=== PATIENT | female | born 1970 | race Asian ===

== ENCOUNTER 2017-05-12 15:42 | Inpatient (IN) | payer MEDICAID ==
[~2017-05-12] VITALS: Ht 165.1 cm; Wt 49.9 kg
--- NOTE | 2017-05-12 16:00 | NUR ---
Nicolás Plata MANAGER TRACK evaluating pt in triage room.
[2017-05-12] MEDS ORDERED: NACL 0.9% 1,000 ML IV ONE (16:15)
[2017-05-12] MEDS ORDERED: MORPHINE 4 MG/ML INJ. SYRINGE IVP ONE (16:15)
[2017-05-12] MEDS ORDERED: ONDANSETRON HCL 4 MG/2 ML VIAL IVP ONE (16:15)
--- NOTE | 2017-05-12 16:15 | NUR ---
Called pt for triage, in lab
[2017-05-12 16:19] LABS: MEAN CORPUSCULAR HEMOGLOBIN 29 pg (27-31); MEAN CORPUSCULAR HGB CONC 33 % (32-36); MEAN CORPUSCULAR VOLUME 89 fL (79.0-98.0)
[2017-05-12 16:20] LABS: BILIRUBIN,URINE 1+ (NEGATIVE); BLOOD, URINE 3+ (NEGATIVE); CLARITY/URINE CLOUDY (CLEAR); COLOR,URINE YELLOW (YELLOW); GLUCOSE,URINE NEGATIVE (NEGATIVE); KETONES,URINE NEGATIVE (NEGATIVE); LEUKOCYTE ESTERASE ,URINE 2+ (NEGATIVE); NITRITE, URINE NEGATIVE (NEGATIVE); PROTEIN URINE 3+ (NEGATIVE)
[2017-05-12 16:23] LABS: BASOPHILS # (AUTO) 0.1 K/uL (0.0-0.2); BASOPHILS % (AUTO) 0.6 % (0.0-2.0); HEMATOCRIT 39.3 % (36-48); LYMPHOCYTES # (AUTO) 0.4 K/uL (1.0-5.5); LYMPHOCYTES % (AUTO) 2.7 % (20.5-51.5); MONOCYTES # (AUTO) 0.9 K/uL (0.0-1.0); PLATELET COUNT (AUTO) 200 K/uL (130-430); RED BLOOD CELL COUNT(AUTO) 4.44 MIL/uL (4.2-6.2); WHITE BLOOD COUNT (AUTO) 15.4 K/uL (4.8-10.8)
[2017-05-12 16:29] LABS: CREATININE 1.89 mg/dL (0.55-1.30); POTASSIUM 3.4 mmol/L (3.5-5.1)
[2017-05-12 16:34] LABS: ALBUMIN 3.1 g/dL (3.4-4.8); TOTAL BILIRUBIN 0.4 mg/dL (0.0-1.0); TOTAL PROTEIN, SERUM 8.8 g/dL (6.4-8.3)
--- NOTE | 2017-05-12 16:35 | NUR ---
Called pt for triage, in ultrasound
[2017-05-12 16:41] LABS: NEUTROPHILS % (AUTO) 90.7 % (40.0-70.0)
[2017-05-12 16:55] LABS: BACTERIA,URINE MODERATE /HPF (None Seen); RBC,URINE 20-50 /HPF (0-3)
[2017-05-12 16:56] LABS: COARSE GRANULAR CASTS,URINE 0-10 /LPF (None Seen); MUCUS,URINE None Seen /LPF (None Seen); URINE AMORPHOUS URATE 2+ /HPF (None Seen)
--- NOTE | 2017-05-12 17:12 | NUR ---
Ambulatory to bed 7, labs and ultrasound done
[2017-05-12 17:15] VITALS: BP_SYST 156
--- NOTE | 2017-05-12 17:19 | NUR ---
Phleb at bedside for blood cultures
--- NOTE | 2017-05-12 17:20 | NUR ---
Patient is A & O x 4. Patient's skin is warm, dry and intact. Patient complaints of vomiting for 5 days with upper right abdominal pain. Also complaining of headache pain 10/10. No other complaints/injuries per patient or as noted. Will continue to monitor.
[2017-05-12] MEDS ORDERED: ACETAMINOPHEN 500 MG TABLET PO ONE (17:45)
[2017-05-12] MEDS ORDERED: cefTRIAXone 2 GM VIAL ONE (18:05)
--- NOTE | 2017-05-12 18:40 | NUR ---
Patient reports pain 2/10 30minutes after administration of Morphine. No adverse reactions noted. Will continue to monitor.
[2017-05-12] MEDS ORDERED: INSU100V (18:50)
[2017-05-12] MEDS ORDERED: INSU100V11 SQ (18:50)
[2017-05-12] MEDS ORDERED: [UNRECOGNIZED DRUG - CODE] MC (18:51)
[2017-05-12] MEDS ORDERED: DOCU-144 PO (18:52)
--- NOTE | 2017-05-12 19:04 | NUR ---
Patient will be admitted to care of Dr. iSmental . Admitted to telemetry unit. Will go to room 109 A. Belongings list completed. Summary report printed. Report will be given at bedside.
--- NOTE | 2017-05-12 19:04 | NUR ---
ADMISSION NOTE Received patient from ER via gurney. Patient admitted with diagnosis of abdominal pain. Patient oriented to hospital routine, call light, toileting and safety-patient verbalized understanding.
[2017-05-12 19:05] VITALS: BP_SYST 138
[2017-05-12 19:27] VITALS: BP_SYST 138
[2017-05-12 20:03] VITALS: BP_SYST 138
--- NOTE | 2017-05-12 20:04 | NUR ---
OPENING NOTES PATIENT IS A/OX4. VITAL SIGNS ARE STABLE. NO SIGNS OF DISTRESS. BREATHING IS NON LABORED. PATIENT HAS NO COMPLAINTS OF PAIN AT THIS TIME. PATIENT STATED THAT PAIN IS 2/10 AND THAT IS COMFORTABLY FOR HER. IV IS PATENT. BOLUS OF NS IS RUNNING THAT WAS GIVEN IN THE ER. PATIENT INSTRUCTED TO CALL FOR ASSISTANCE. CALL LIGHT IS WITHIN REACH. SAFETY MEASURES ARE IN PLACE.WILL CONTINUE TO MONITOR.
--- NOTE | 2017-05-12 20:16 | NUR ---
CONSULT REASON ABD PAIN CALLED YES SPOKE WITH ADOLFO FOR DOCTOR ATIL
--- NOTE | 2017-05-12 21:06 | NUR ---
PAGED I PAGED DR. LIZ @ 2105 I SPOKE WITH ADOLFO SUNSHINE CALLED BACK TELLING ME THE WAS NOT HIS PATIENT I TOLD HIM I DID NOT PAGED YOU I PAGED DR. LIZ. I CALLED BACK @ 2109 I SPOKE WITH YOAV I TOLD HER THAT ADOLFO PAGED THE WRONG DRMihai THAT WE NEED DR. LIZ. SHE PAGED DR. LIZ NOW. DR. LIZ HAS NOT CALL YET.
--- NOTE | 2017-05-12 21:30 | NUR ---
PAGED DR. LIZ PAGED DR. LIZ FOR ORDERS.
--- NOTE | 2017-05-12 21:50 | NUR ---
COMMUNICATION WITH DR. LIZ CALLED INQUIRING ABOUT ADMISSION ORDERS. STATED THAT SHE WILL INPUT ORDERS.
--- NOTE | 2017-05-12 21:53 | NUR ---
PAGED I PAGED DR. LIZ AGAIN I SPOKE WITH EDMUNDO WYATT CONNECTED ME RIGHT AWAY THIS TIME DR. LIZ ANSWERED
[2017-05-12] MEDS ORDERED: MORPHINE 2 MG/ML INJ. SYRINGE IVP PRN (22:30)
[2017-05-12] MEDS ORDERED: ONDANSETRON HCL 4 MG/2 ML VIAL IVP PRN (22:30)
[2017-05-12] MEDS ORDERED: KCL 20 mEq in 100 mL (PREMIX) 100 ML IV ONE (23:39)
[2017-05-12] MEDS: PANTOPRAZOLE SODIUM 40 MG/VIAL (PROTONIX) IVP SCH (23:52)
[2017-05-12] MEDS: POTASSIUM CHLORIDE 10 MEQ in NACL 0.9% 1,000 ML IV SCH (23:53)
--- NOTE | 2017-05-13 00:15 | NUR ---
PATIENT CARE PATIENT WAS INFORMED OF DIET BEING CHANGED FROM NPO TO CLEAR LIQUID W/O RED. PATIENT WAS GIVEN CHICKEN BROTH. WILL HANG MEDICATION WHEN AVAILABLE.
[2017-05-13 00:23] VITALS: BP_SYST 139
[2017-05-13] MEDS ORDERED: metroNIDAZOLE 500 mg/NS 100 ML IV ONE ×2 (00:26→05:19)
[2017-05-13] MEDS ORDERED: LEVOFLOXACIN 250 MG/D5W 50 ML IV ONE (00:26)
[2017-05-13] MEDS: metroNIDAZOLE 500 mg/NS 100 ML IV SCH ×4 (00:37→21:19)
[2017-05-13] MEDS: LEVOFLOXACIN 250 MG/D5W 50 ML IV SCH ×2 (01:39→22:33)
--- NOTE | 2017-05-13 03:22 | NUR ---
NAUSEA/ VOMITING AND FEVER PATIENT VOMITED AND HAS A TEMPERATURE 100.4. PRN ANTINAUSEA AND TYLENOL WAS GIVEN. WILL CONTINUE TO MONITOR.
[2017-05-13] MEDS: ACETAMINOPHEN 325 MG TABLET PO PRN ×2 (03:31→16:50)
--- NOTE | 2017-05-13 03:51 | NUR ---
COMMUNICATION WITH DR. LIZ INFORMED DR. LIZ THAT DR. HARDEN, GI CONSULTATION, IS ON SUSPENSION. MD STATED TO CONSULT DR. HARDEN ANYWAY, BECAUSE DR. HARDEN PARTNERS WILL SEE THAT PATIENT AND NOT DR. HARDEN. CONSULTATION WAS CALLED IN.
--- NOTE | 2017-05-13 03:51 | NUR ---
CONSULT REASON -- ABD PAIN CALLED YES SPOKE WITH BERENICE OSMAN FOR DOCTOR HARDEN BUT DOCTOR HENRIQUEZ IS ELECTRIC MULE DRIVER . DOCTOR HARDEN IS ELECTRIC MULE DRIVER Addendum: 05/13/17 at 0352 by Beverly Herbert CNA DERECK IS ON SUSPENSION
[2017-05-13 04:04] VITALS: BP_SYST 150
--- NOTE | 2017-05-13 05:29 | NUR ---
PATIENT CARE PATIENT WAS ASSISTED TO THE RESTROOM AND BACK INTO BED. GAIT IS STEADY HOWEVER PATIENT COMPLAINED OF DIZZINESS. CALL LIGHT IS WITHIN REACH. BED ALARM IS ON. PATIENT WAS GIVEN NON SKID SLIPPERS. FALL RISK BAND WAS PLACED ON PATIENT. PATIENT INSTRUCTED TO CALL FOR ASSISTANCE. PATIENT VERBALIZED UNDERSTANDING. WILL CONTINUE TO MONITOR.
--- NOTE | 2017-05-13 05:33 | NUR ---
URINE FOR TEST WAS COLLECTED AND TAKING LAB.
[2017-05-13] MEDS: INSULIN ASPART 100 UNITS/ML, 10 ML VIAL (NovoLOG) SUBCUT PRN ×3 (06:35→22:14)
--- NOTE | 2017-05-13 06:51 | NUR ---
CLOSING NOTES PATIENT IS IN BED RESTING. NO COMPLAINTS OF PAIN OR NAUSEA. NO SIGNS OF DISTRESS. IV IS PATIENT. BREATHING IS NON LABORED. CALL LIGHT IS WITHIN REACH. BED ALARM IS ON. WILL ENDORSE ALL CARE TO THE MORNING NURSE.
[2017-05-13 07:25] LABS: HEMATOCRIT 32.9 % (36-48); HEMOGLOBIN 11.2 g/dL (12.0-16.0); MEAN CORPUSCULAR HEMOGLOBIN 30 pg (27-31); MEAN CORPUSCULAR HGB CONC 34 % (32-36); MEAN CORPUSCULAR VOLUME 89 fL (79.0-98.0); PLATELET COUNT (AUTO) 174 K/uL (130-430); RED BLOOD CELL COUNT(AUTO) 3.69 MIL/uL (4.2-6.2); RED CELL DISTRIBUTION WIDTH 12.8 % (9.0-15.0); WHITE BLOOD COUNT (AUTO) 14.2 K/uL (4.8-10.8)
--- NOTE | 2017-05-13 08:00 | NUR ---
OPENING NOTE PATIENT IS AWAKE ALERT AND ORIENTED. DENIES ANY PAIN AT THIS TIME. DENIES NAUSEA, REPORTS HUNGER AND WANTING TO GO HOME. AFEBRILE AND NO SIGNS OF DISTRESS.
[2017-05-13 08:10] LABS: ALBUMIN 2.5 g/dL (3.4-4.8); BILIRUBIN,DIRECT 0.2 mg/dL (0.0-0.3); CREATININE 1.86 mg/dL (0.55-1.30); POTASSIUM 3.4 mmol/L (3.5-5.1); THYROID STIMULATING HORMONE 0.63 uIu/mL (0.34-4.82); TOTAL BILIRUBIN 0.3 mg/dL (0.0-1.0); TOTAL PROTEIN, SERUM 7.1 g/dL (6.4-8.3)
[2017-05-13 08:27] VITALS: BP_SYST 115
[2017-05-13] MEDS: PANTOPRAZOLE SODIUM 40 MG/VIAL (PROTONIX) IVP SCH (09:10)
[2017-05-13] MEDS: POTASSIUM CHLORIDE 10 MEQ in NACL 0.9% 1,000 ML IV SCH ×2 (10:03→20:06)
--- NOTE | 2017-05-13 10:10 | NUR ---
PATIENT INFORMED OF HIDA PROCEDURE, INFORMED SHE IS NPO AND SHE WILL NOT RECEIVE PAIN MEDICATION UNTIL AFTER THE TEST HAS BEEN PERFORMED. EXPLAINED BASICS OF HIDA SCAN AND GALLBLADDER FUNCTION.
[2017-05-13 12:16] VITALS: BP_SYST 134
[2017-05-13] MEDS ORDERED: POTASSIUM CHLORIDE 20 MEQ in NS 250 ML IV ONE (12:30)
[2017-05-13 12:51] LABS: ATYPICAL LYMPHOCYTES % 1 % (0-0); BAND % (MANUAL) 32 % (0-6); BASOPHILS % (MANUAL) 0 % (0-2); EOSINOPHILS % (MANUAL) 1 % (0-7); LYMPHOCYTES % (MANUAL) 5 % (20-46); METAMYELOCYTES % 1 % (0-0); MONOCYTES % (MANUAL) 6 % (0-11)
[2017-05-13 12:52] LABS: MYELOCYTES % 1 % (0-0)
--- NOTE | 2017-05-13 13:09 | NUR ---
PATIENT TAKEN TO NUCLEAR MEDICINE VIA WHEELCHAIR.
--- NOTE | 2017-05-13 14:36 | NUR ---
PATIENT RETURNED FROM NUCLEAR MEDICINE
[2017-05-13 16:00] VITALS: BP_SYST 141
[2017-05-13 19:50] VITALS: BP_SYST 128
--- NOTE | 2017-05-13 19:50 | NUR ---
INITIAL NOTE Patient resting on the bed. No acute distress. Respiration even and unlabored. AO x 4. Denied of pain. Skin warm and dry to touch. IV intact to left wrist, no redness, no swelling, no drainage. On KCl 10mEq in NS at 100ml/hr, infusing well. Discussed the safety issue, use call light when need help, and plan of care, verbally understanding. Safety measure maintained. Bed in low position, side rails up. Call light within reached. Will continue to monitor.
--- NOTE | 2017-05-13 21:23 | NUR ---
ROUND Patient resting on the bed and watching TV. No acute distress. Respiration even and unlabored. Safety measure maintained. Bed in low position, side rails up. Call light within reached. Continue to monitor.
--- NOTE | 2017-05-13 21:53 | NUR ---
ROUTINE CONSULT FOR DR TAN SPOKE WITH MARY CALLED FOR ABDOMINAL PAIN ORIGINAL CONSULT FOR DR HARDEN BUT DR IS ON SUSPENSION
--- NOTE | 2017-05-13 22:17 | NUR ---
VOMITED Patient with episode of vomited x1. Offered Zofran but patient refused and hot tea provided per patient requested. HL=150, NovoLog insulin 4unit given as ordered. Call light within reached. Bed in low position, side rails up. Continue to monitor.
--- NOTE | 2017-05-13 23:50 | NUR ---
ROUND Patient resting on the bed comfortable. Respiration even and unlabored. No acute distress. Continue on KCl 10mEq in NS at 100ml/hr, infusing well. Safety measure maintained. Bed in low position, side rails up. Call light within reached. Continue to monitor.
[2017-05-14] VITALS (7 sets, daily range): BP systolic 129–157
--- NOTE | 2017-05-14 01:55 | NUR ---
ROUND Patient resting on the bed comfortable. No acute distress. Continue on KCl 10mEq in NS at 100ml/hr, infusing well. Safety measure maintained. Bed in low position, side rails up. Call light within reached. Continue to monitor.
--- NOTE | 2017-05-14 03:33 | NUR ---
ROUND Patient resting on the bed with eyes closed. Respiration even and unlabored. No acute distress. IV intact, continue on KCl 10mEq in NS at 100ml/hr, infusing well. Safety measure maintained. Call light within reached. Bed in low position, side rails up. Continue to monitor.
--- NOTE | 2017-05-14 05:12 | NUR ---
ASSISTED AMBULATION TO BATHROOM No acute distress. Still with episode of vomiting, Zofran offered but patient still refused. Hot tea provided and patient stated "I am okay." Safety measure maintained. Call light within reached. Continue to monitor.
[2017-05-14] MEDS: metroNIDAZOLE 500 mg/NS 100 ML IV SCH ×2 (05:49→14:48)
--- NOTE | 2017-05-14 06:50 | NUR ---
CLOSING NOTE Patient resting on the bed. No acute distress. Respiration even and unlabored. Skin warm and dry to touch. IV intact to left wrist, no redness, no swelling, no drainage. On KCl 10mEq in NS at 100ml/hr, infusing well. QV=[id number] this morning, no coverage. All needs met. Hourly rounding during shift. Safety measure maintained. Bed in low position, side rails up. Call light within reached. Will endorse to morning shift nurse.
[2017-05-14 07:16] LABS: BASOPHILS % (AUTO) 0.3 % (0.0-2.0); EOSINOPHILS # (AUTO) 0.1 K/uL (0.0-0.4); EOSINOPHILS % (AUTO) 0.7 % (0.0-4.0); HEMATOCRIT 31.1 % (36-48); HEMOGLOBIN 10.1 g/dL (12.0-16.0); LYMPHOCYTES # (AUTO) 0.8 K/uL (1.0-5.5); LYMPHOCYTES % (AUTO) 5.8 % (20.5-51.5); MEAN CORPUSCULAR HEMOGLOBIN 29 pg (27-31); MEAN CORPUSCULAR HGB CONC 33 % (32-36); MEAN CORPUSCULAR VOLUME 90 fL (79.0-98.0); MONOCYTES % (AUTO) 6.9 % (1.7-9.3); NEUTROPHILS # (AUTO) 12.2 K/uL (1.8-7.7); NEUTROPHILS % (AUTO) 86.3 % (40.0-70.0); PLATELET COUNT (AUTO) 203 K/uL (130-430); RED BLOOD CELL COUNT(AUTO) 3.47 MIL/uL (4.2-6.2); RED CELL DISTRIBUTION WIDTH 12.9 % (9.0-15.0); WHITE BLOOD COUNT (AUTO) 14.1 K/uL (4.8-10.8)
[2017-05-14 07:25] LABS: CALCIUM 7.9 mg/dL (8.4-11.0); CREATININE 1.41 mg/dL (0.55-1.30); POTASSIUM 4.4 mmol/L (3.5-5.1)
--- NOTE | 2017-05-14 08:00 | NUR ---
OPENING NOTES PATIENT IN BED, PT IS AWAKE ALERT AND ORIENTED. DENIES ANY PAIN AT THIS TIME. DENIES NAUSEA, REPORTS HUNGER TOLD HER THAT SHE IS IN CLEAR LIQUID DIET BUT REFUSE TO EAT IT. AFEBRILE AND NO SIGNS OF DISTRESS. IV FLUIDS RUNNING WELL ON L FA #20 IV. SITE IS CLEAR AND INTACT. NO INFLAMMATION. CALL LIGHT IN REACH, BED IN LOW POSITION. WILL CONT TO MONITOR.
[2017-05-14] MEDS ORDERED: DIATR MEGLU/DIATRIZ SOD 30 ML SOLUTION PO ONE (08:20)
[2017-05-14] MEDS: PANTOPRAZOLE SODIUM 40 MG/VIAL (PROTONIX) IVP SCH (08:44)
[2017-05-14] MEDS: POTASSIUM CHLORIDE 10 MEQ in NACL 0.9% 1,000 ML IV SCH (08:46)
--- NOTE | 2017-05-14 10:00 | NUR ---
ROUNDING NOTES, PT IN BED, DENIES PAIN. NO SOB, NO DISTRESS. WILL CONT TO MONITOR. PT GIVEN GASROGRAFFIN BY RADIOLOGY FOR CT OF ABD. PT FINISHED IT. CALLED CT AND LEFT MESSAGE TO TELL THEM THAT PT FINISHED TAKING IT.
--- NOTE | 2017-05-14 10:27 | NUR ---
PT OUT OF UNIT FOR CT ABD/PELVIS.
--- NOTE | 2017-05-14 12:00 | NUR ---
rounding notes, pt is bed, resting comfortably, breathing even and unlabored. no sob, no distress. iv fluids running well in the r. ac#22. no infiltration noted. call light in reach, bed in lowest position. safety precaution in place. will cont to monitor.
--- NOTE | 2017-05-14 14:00 | NUR ---
rounding notes, pt is bed, resting comfortably, breathing even and unlabored. checked iv pump. iv access flushed. no infiltration noted. call light in reach, bed in lowest position. safety precaution in place. will cont to monitor.
[2017-05-14] MEDS: INSULIN ASPART 100 UNITS/ML, 10 ML VIAL (NovoLOG) SUBCUT PRN (17:27)
[2017-05-14] MEDS ORDERED: CIPR-260 PO (17:41)
--- NOTE | 2017-05-14 18:50 | NUR ---
TRANSITION PAPERS DISCUSSED AND GIVEN TO PATIENT, ALL QUESTION ANSWERED. PT VERBALIZED UNDERSTANDING OF THE TRANSITION CARE INSTRUCTIONS.
--- NOTE | 2017-05-14 19:10 | NUR ---
ENDORSED TO NIGHT RN. PT WAITING FOR FAMILY TO PICK HER UP.
--- NOTE | 2017-05-14 20:00 | NUR ---
pt.d/c home in stable condition.v/s values:w/in normal limits:b/p slight elevation.pt.refused any medicinal intervention. d/c paper-work prepared and distributed per day-shift nsg:luana.id bands d/c all pt's belongings were accounted for. pt.ambulated from the room:refused wheel chair.
== END 2017-05-14 20:02 | disposition home or self-care (01) | DRG 720 ==
LOC: SED 15:42 → STU 18:19 → SMU 05-13 16:00
PROVIDERS: ADMIT Internal Medicine; ATTEND Internal Medicine
DX: A41.9 Sepsis, unspecified organism (principal); N17.9 Acute kidney failure, unspecified; E44.0 Moderate protein-calorie malnutrition; E11.22 Type 2 diabetes mellitus with diabetic chronic kidney disease; N10 Acute pyelonephritis; E86.0 Dehydration; D41.4 Neoplasm of uncertain behavior of bladder; I12.9 Hypertensive chronic kidney disease with stage 1 through stage 4 chronic kidney disease, or unspecified chronic kidney disease; E87.1 Hypo-osmolality and hyponatremia; D18.09 Hemangioma of other sites; E87.6 Hypokalemia; N18.9 Chronic kidney disease, unspecified; B96.1 Klebsiella pneumoniae [K. pneumoniae] as the cause of diseases classified elsewhere; Z87.440 Personal history of urinary (tract) infections; Z79.4 Long term (current) use of insulin; Z79.899 Other long term (current) drug therapy; Z68.1 Body mass index [BMI] 19.9 or less, adult
CPT/HCPCS: 36415; 76700-TC; 78226; 80048; 80053; 80076; 81000-TC; 82150-TC; 82962; 83605; 83690-TC; 83735-TC; 84443-TC; 84703; 85007; 85025; 85027; 87040-TC; 87086; 87186-TC; 96365; 96375; 99285; A9537; C9113; J0696; J1815; J1956; J2270; J2405; J3480; J3490; J7030; J7050; J7060; Q9964

== ENCOUNTER 2019-12-10 18:35 | Emergency (ER) | payer MEDICAID ==
[~2019-12-10] VITALS: Ht 165.1 cm; Wt 48.1 kg
[~2019-12-10 18:35] MED LIST: CIPR-260 PO; DOCU-144 PO; INSU100V11 SQ
[2019-12-10 18:43] VITALS: BP_SYST 155
--- NOTE | 2019-12-10 18:52 | NUR ---
Patient to ER bed 8 to gown for evaluation. Side rails up. Report given to SHAUNA Saavedra.
--- NOTE | 2019-12-10 19:30 | NUR ---
Dr. Chen bedside for pt eval
--- NOTE | 2019-12-10 19:35 | NUR ---
Lab at bedside for blood draw well tolerated
[2019-12-10 20:02] LABS: BASOPHILS % (AUTO) 0.4 % (0.0-2.0); EOSINOPHILS # (AUTO) 0.2 K/uL (0.0-0.4); EOSINOPHILS % (AUTO) 1.9 % (0.0-4.0); HEMATOCRIT 37.8 % (36-48); HEMOGLOBIN 12.3 g/dL (12.0-16.0); LYMPHOCYTES # (AUTO) 1.4 K/uL (1.0-5.5); LYMPHOCYTES % (AUTO) 10.6 % (20.5-51.5); MEAN CORPUSCULAR HEMOGLOBIN 29 pg (27-31); MEAN CORPUSCULAR HGB CONC 33 % (32-36); MEAN CORPUSCULAR VOLUME 88 fL (79.0-98.0); MONOCYTES # (AUTO) 1.2 K/uL (0.0-1.0); NEUTROPHILS # (AUTO) 10.3 K/uL (1.8-7.7); NEUTROPHILS % (AUTO) 78.1 % (40.0-70.0); PLATELET COUNT (AUTO) 225 K/uL (130-430); RED BLOOD CELL COUNT(AUTO) 4.28 MIL/uL (4.2-6.2); RED CELL DISTRIBUTION WIDTH 13.4 % (9.0-15.0); WHITE BLOOD COUNT (AUTO) 13.2 K/uL (4.8-10.8)
--- NOTE | 2019-12-10 20:03 | NUR ---
Dr. Dolan bedside as well for pt eval
--- NOTE | 2019-12-10 20:05 | NUR ---
Pt BIB family to ED with Hx of type 1 diabetes and anemia, presenting with constant, dull, lower abdominal pain since , 3 days ago, and fevers, multiple episodes of nausea and nonbloody/nonbilious emesis, watery diarrhea, body aches, chills, and diaphoresis that night. She endorses taking Tylenol that night with no relief. Today, she reports of hyperglycemia even though she took her Insulin No other complaints noted VSS no s/s of acute distress Resting on [employer] rails up
[2019-12-10 20:07] LABS: CALCIUM 9.1 mg/dL (8.4-11.0); CREATININE 1.87 mg/dL (0.55-1.30); POTASSIUM 4.3 mmol/L (3.5-5.1)
[2019-12-10 20:12] LABS: ALBUMIN 3.5 g/dL (3.4-4.8); TOTAL BILIRUBIN 0.3 mg/dL (0.0-1.0)
[2019-12-10] MEDS ORDERED: NACL 0.9% 1,000 ML IV ONE (20:15)
[2019-12-10 20:46] LABS: BILIRUBIN,URINE NEGATIVE (NEGATIVE); BLOOD, URINE 1+ (NEGATIVE); COLOR,URINE YELLOW (YELLOW); GLUCOSE,URINE TRACE (NEGATIVE); KETONES,URINE NEGATIVE (NEGATIVE); LEUKOCYTE ESTERASE ,URINE 2+ (NEGATIVE); NITRITE, URINE NEGATIVE (NEGATIVE); PROTEIN URINE 1+ (NEGATIVE); UROBILINOGEN,URINE 0.2 (0.2-1.0)
[2019-12-10 20:52] LABS: CLARITY/URINE HAZY (CLEAR)
[2019-12-10 20:55] LABS: BACTERIA,URINE FEW /HPF (None Seen); MUCUS,URINE None Seen /LPF (None Seen); RBC,URINE 0-3 /HPF (0-3)
[2019-12-10] MEDS ORDERED: cefTRIAXone 1 GM IVPB PREMIX 50 ML IV ONE (21:00)
[2019-12-10] MEDS ORDERED: ACETAMINOPHEN 500 MG TABLET PO ONE (23:00)
--- NOTE | 2019-12-10 23:23 | NUR ---
Pt moved to bed 6
[2019-12-11 01:15] VITALS: BP_SYST 148
--- NOTE | 2019-12-11 01:15 | NUR ---
Patient given written and verbal discharge instructions and verbalizes understanding. ER MD discussed with patient the results and treatment provided. Patient in stable condition. ID arm band removed. IV catheter removed intact and dressing applied, no active bleeding. Rx of Keflex and Austin given. Patient educated on pain management and to follow up with PMD. Pain Scale 0/10 opportunity for questions provided and answered. Medication side effect fact sheet provided.
== END 2019-12-11 01:15 | disposition home or self-care (01) ==
LOC: SED 18:35
DX: K80.20 Calculus of gallbladder without cholecystitis without obstruction (principal); N39.0 Urinary tract infection, site not specified; K76.9 Liver disease, unspecified; R10.30 Lower abdominal pain, unspecified; E11.65 Type 2 diabetes mellitus with hyperglycemia; Z86.2 Personal history of diseases of the blood and blood-forming organs and certain disorders involving the immune mechanism
CPT/HCPCS: 36415; 71045; 74176; 80053; 81000; 82962; 85025; 86710; 87086; 96361; 96365; 99285; J0696; J7030; 87186-TC